=== PATIENT | female | born 1990 | race Two or more races ===

== ENCOUNTER 2021-06-13 07:30 | Inpatient (IN) | payer OTHER ==
[~2021-06-13] VITALS: Ht 162.6 cm; Wt 58.1 kg
[2021-06-13] MEDS ORDERED: SYNTHROID50 MCG PO (10:18)
[2021-06-22] MEDS ORDERED: CODE1TAB37 PO (07:53)
[2021-06-22] MEDS ORDERED: KETO10TA2 PO (07:54)
== END 2021-06-22 10:56 | disposition home or self-care (01) | DRG 747 ==
LOC: SURH 07:30 → O/R 06-20 05:50 → SURH 06-20 07:00 → OB/GYN 06-20 10:24
PROVIDERS: ADMIT Obstetrics & Gynecology Maternal & Fetal Medicine; ATTEND Obstetrics & Gynecology Maternal & Fetal Medicine
PROC: 0UVC0ZZ Restriction of Cervix, Open Approach (ICD-10-PCS; principal; 2021-06-20 07:00)
DX: N88.3 Incompetence of cervix uteri (principal); N99.89 Other postprocedural complications and disorders of genitourinary system; N96 Recurrent pregnancy loss